=== PATIENT | female | born 1990 | race Caucasian/White ===

== ENCOUNTER → 2017-07-16 | Outpatient (REF) ==
[~2017-07-16] MED LIST: ACHYD1T PO; ACYC200C PO; CLOT15CR; DOCU100C37 PO; Docusate Sodium PO; FERR-57 PO; IBUP-1780 PO; Ibuprofen PO; ONDA4TAB11 PO; OXYC-465 PO; PREN1TAB25 PO
--- NOTE | 2017-07-16 12:58 | Diagnostic Imaging Report ---
INDICATION: Injury to the right fifth toe, complaining of pain and swelling to the fifth toe. TIME OF EXAMINATION: 12:59 p.m. FINDINGS: There is a longitudinally oriented lucency through the distal aspect of the proximal phalanx of the fifth toe, suspicious for a fracture line. No displacement is seen. The distal phalanx is intact. The fifth metatarsal is intact. No other abnormalities are seen. IMPRESSION: Findings suspicious for a nondisplaced fracture of the distal aspect proximal phalanx, fifth toe. Dictated by: Dictated on workstation # [id number]
== END | disposition home or self-care (01) ==
LOC: RAD 12:32
PROVIDERS: ATTEND Nurse Practitioner Family
CPT/HCPCS: 73630

== ENCOUNTER 2017-08-18 02:42 | Emergency (ER) | payer OTHER ==
[~2017-08-18] VITALS: Ht 177.8 cm; Wt 95.3 kg
[2017-08-18] MEDS ORDERED: ONDANSETRON 4 MG (ZOFRAN) ORAL DISSOLVE TAB SL STA (03:05)
[2017-08-18] MEDS ORDERED: LIDOCAINE 2% VISCOUS 15 ML UDC PO ONE (03:15)
[2017-08-18] MEDS ORDERED: ANTACID SUSP 30 ML UDC (MYLANTA) PO ONE (03:15)
[2017-08-18 03:48] LABS: BILIRUBIN,URINE NEGATIVE (NEGATIVE); CLARITY,URINE CLEAR; COLOR,URINE YELLOW; GLUCOSE, URINE (UA) NEGATIVE (NEGATIVE); KETONES,URINE NEGATIVE (NEGATIVE); LEUKOCYTE ESTERASE ,URINE NEGATIVE (NEGATIVE); NITRITE,URINE NEGATIVE (NEGATIVE); PH,URINE 7 (5-9); PROTEIN,URINE NEGATIVE (NEGATIVE); UROBILINOGEN,URINE NORMAL (NORMAL)
[2017-08-18 04:02] LABS: BASOPHILS % (AUTO) 0 % (0-10); EOSINOPHILS # (AUTO) 0.2 10^3/uL (0.0-0.3); EOSINOPHILS % (AUTO) 2 % (0-10); HEMATOCRIT 41 % (35-52); HEMOGLOBIN 13.6 G/DL (11.5-16.0); LYMPHOCYTES # (AUTO) 1.9 X 10^3 (1.0-4.0); LYMPHOCYTES % (AUTO) 19 % (12-44); MEAN CORPUSCULAR HEMOGLOBIN 30 PG (25-34); MEAN CORPUSCULAR HGB CONC 33 G/DL (32-36); MEAN CORPUSCULAR VOLUME 92 FL (80-99); MEAN PLATELET VOLUME 9.4 FL (7.4-10.4); MONOCYTES # (AUTO) 0.6 X 10^3 (0.0-1.0); MONOCYTES % (AUTO) 6 % (0-12); NEUTROPHILS # (AUTO) 7.6 X 10^3 (1.8-7.8); NEUTROPHILS % (AUTO) 74 % (42-75); PLATELET COUNT 402 10^3/uL (130-400); RED BLOOD COUNT 4.48 10^6/uL (4.35-5.85); RED CELL DISTRIBUTION WIDTH 12.6 % (10.0-14.5); WHITE BLOOD COUNT 10.3 10^3/uL (4.3-11.0)
[2017-08-18 04:04] LABS: BACTERIA,URINE TRACE /HPF; SQUAMOUS EPITHELIAL CELL,UR 25-50 /HPF
[2017-08-18 04:21] LABS: ALANINE AMINOTRANSFERASE 11 U/L (0-55); ALBUMIN 3.8 GM/DL (3.2-4.5); ALKALINE PHOSPHATASE 72 U/L (40-136); BILIRUBIN,TOTAL 0.4 MG/DL (0.1-1.0); BUN/CREATININE RATIO 12; CALCIUM 9.2 MG/DL (8.5-10.1); CARBON DIOXIDE 22 MMOL/L (21-32); CHLORIDE 107 MMOL/L (98-107); CREATININE SERUM 0.97 MG/DL (0.60-1.30); GFR ESTIMATED > 60; GLUCOSE 127 MG/DL (70-105); LIPASE 42 U/L (8-78); POTASSIUM 4.3 MMOL/L (3.6-5.0); SODIUM 139 MMOL/L (135-145); TOTAL PROTEIN 7.2 GM/DL (6.4-8.2)
--- NOTE | 2017-08-18 04:34 | ED Abdominal Pain ---
General Chief Complaint: Abdominal/GI Problems Stated Complaint: AB PAIN Nursing Triage Note: PT REPORTS EPIGASTRIC ABD PAIN X 4 DAYS. SHE ALSO C/O NAUSEA WITHOUT VOMITING. PT IS AFEBRILE. Sepsis Screen: No Definite Risk Source of Information: Patient Exam Limitations: No Limitations History of Present Illness Date Seen by Provider: Aug 18, 2017 Time Seen by Provider: 02:40 Initial Comments This 26-year-old young lady presents to the emergency room with pain across the upper abdomen that is constant and crampy in nature. It started August 14 and has intensified some since then. She has associated nausea with some vomiting. Pain does not seem to be exacerbated with movement or eating. She also complained of some breast discomfort as well. Yhiw-xkd-hqnimgq pain medications and Zofran used at home have not been helpful. She denies fever. She denies constipation or diarrhea. Her last bowel movement was 08:00 yesterday. Her last solid food was a sandwich at 18:00. She last had water at 21:00. She is noted to have pain with laughing in the exam room. Allergies and Home Medications Allergies Coded Allergies: phenazopyridine (Verified Allergy, Intermediate, HIVES, 09/05/15) Home Medications Docusate Sodium 100 Mg Capsule, 100 MG PO BID Prescribed by: MERCEDES WILKINS on 09/16/15 0754 Ibuprofen 800 Mg Tablet, 800 MG PO Q6H Prescribed by: MERCEDES WILKINS on 09/16/15 0754 Oxycodone HCl/Acetaminophen 1 Each Tablet, 1-2 TAB PO Q4H PRN for PAIN Prescribed by: MERCEDES WILKINS on 09/16/15 0754 Vit#96/Ferrous Fum/Fa 1 Each Tablet, 1 EACH PO DAILY, (Reported) Review of Systems Constitutional: no symptoms reported EENTM: No Symptoms Reported Respiratory: No Symptoms Reported Cardiovascular: No Symptoms Reported Gastrointestinal: See HPI Genitourinary: No Symptoms Reported Musculoskeletal: no symptoms reported Skin: no symptoms reported Psychiatric/Neurological: No Symptoms Reported Endocrine: No Symptoms Reported Past Wtqshev-Nfhonh-Mwuhpi Hx Patient Social History Alcohol Use: Denies Use Recreational Drug Use: No Smoking Status: Never a Smoker 2nd Hand Smoke Exposure: No Recent Foreign Travel: No Contact w/Someone Who Travel: No Recent Infectious Disease Expo: No Recent Hopitalizations: No Immunizations Up To Date Tetanus Booster (TDap): More than 5yrs PED Vaccines UTD: Yes Date of Influenza Vaccine: Mar 07, 2015 Seasonal Allergies Seasonal Allergies: No Surgeries History of Surgeries: Yes Surgeries: Section Respiratory History of Respiratory Disorde: No Cardiovascular History of Cardiac Disorders: No (HYPERTENSION WITH LAST ) Neurological History of Neurological Disord: Yes Neurological Disorders: Headaches /Migraines Reproductive System : No Hx Reproductive Disorders: No Sexually Transmitted Disease: No HIV/AIDS: No Genitourinary History of Genitourinary Disor: No Gastrointestinal History of Gastrointestinal Di: No Musculoskeletal History of Musculoskeletal Dis: No Endocrine History of Endocrine Disorders: No HEENT History of HEENT Disorders: No Loss of Vision: Bilateral Hearing Impairment: Denies Cancer History of Cancer: No Psychosocial History of Psychiatric Problem: No Integumentary History of Skin or Integumenta: No Blood Transfusions History of Blood Disorders: No Adverse Reaction to a Blood Tr: No Family Medical History Significant Family History: Diabetes Family Medial History: Diabetes mellitus G8 SISTER Hypertension 19 FATHER Physical Exam Vital Signs VS - Last 72 Hours, by Label 08/18/17 08/18/17 02:50 05:50 Temp 97.1 97.1 Pulse 66 66 Resp 16 16 B/P (MAP) 133/96 (108) 133/96 (108) Pulse Ox 99 99 O2 Delivery Room Air Capillary Refill : Less Than 3 Seconds General Appearance: WD/WN, no apparent distress HEENT: PERRL/EOMI, normal ENT inspection Neck: normal inspection Respiratory: lungs clear, normal breath sounds, no respiratory distress, no accessory muscle use Cardiovascular: regular rate, rhythm, no edema, no murmur Gastrointestinal: normal bowel sounds, soft, tenderness (epigastric) Extremities: normal inspection, no pedal edema 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, no motor/sensory deficits, alert, normal mood/affect, oriented x 3 Skin: normal color, warm/dry Progress/Results/Core Measures Results/Orders Lab Results Laboratory Tests Test 08/18/17 02:55 08/18/17 03:49 Range/Units Urine Color YELLOW Urine Clarity CLEAR Urine pH 7 5-9 Urine Specific [place] 1.015 L 1.016-1.022 Urine Protein NEGATIVE NEGATIVE Urine Glucose (UA) NEGATIVE NEGATIVE Urine Ketones NEGATIVE NEGATIVE Urine Nitrite NEGATIVE NEGATIVE Urine Bilirubin NEGATIVE NEGATIVE Urine Urobilinogen NORMAL NORMAL MG/DL Urine Leukocyte Esterase NEGATIVE NEGATIVE Urine RBC (Auto) NEGATIVE NEGATIVE Urine RBC NONE /HPF Urine WBC NONE /HPF Urine Squamous Epithelial Cells 25-50 H /HPF Urine Crystals NONE /LPF Urine Bacteria TRACE /HPF Urine Casts NONE /LPF Urine Mucus NEGATIVE /LPF Urine Culture Indicated NO White Blood Count 10.3 4.3-11.0 10^3/uL Red Blood Count 4.48 4.35-5.85 10^6/uL Hemoglobin 13.6 11.5-16.0 G/DL Hematocrit 41 35-52 % Mean Corpuscular Volume 92 80-99 FL Mean Corpuscular Hemoglobin 30 25-34 PG Mean Corpuscular Hemoglobin Concent 33 32-36 G/DL Red Cell Distribution Width 12.6 10.0-14.5 % Platelet Count 402 H 130-400 10^3/uL Mean Platelet Volume 9.4 7.4-10.4 FL Neutrophils (%) (Auto) 74 42-75 % Lymphocytes (%) (Auto) 19 12-44 % Monocytes (%) (Auto) 6 0-12 % Eosinophils (%) (Auto) 2 0-10 % Basophils (%) (Auto) 0 0-10 % Neutrophils # (Auto) 7.6 1.8-7.8 X 10^3 Lymphocytes # (Auto) 1.9 1.0-4.0 X 10^3 Monocytes # (Auto) 0.6 0.0-1.0 X 10^3 Eosinophils # (Auto) 0.2 0.0-0.3 10^3/uL Basophils # (Auto) 0.0 0.0-0.1 10^3/uL Sodium Level 139 135-145 MMOL/L Potassium Level 4.3 3.6-5.0 MMOL/L Chloride Level 107 98-107 MMOL/L Carbon Dioxide Level 22 21-32 MMOL/L Anion Gap 10 5-14 MMOL/L Blood Urea Nitrogen 12 7-18 MG/DL Creatinine 0.97 0.60-1.30 MG/DL Estimat Glomerular Filtration Rate > 60 BUN/Creatinine Ratio 12 Glucose Level 127 H 70-105 MG/DL Calcium Level 9.2 8.5-10.1 MG/DL Total Bilirubin 0.4 0.1-1.0 MG/DL Aspartate Amino Transf (AST/SGOT) 14 5-34 U/L Alanine Aminotransferase (ALT/SGPT) 11 0-55 U/L Alkaline Phosphatase 72 40-136 U/L Total Protein 7.2 6.4-8.2 GM/DL Albumin 3.8 3.2-4.5 GM/DL Lipase 42 8-78 U/L Serum Test, Qualitative NEGATIVE NEGATIVE My Orders Orders - RAMAN STONE MD Ondansetron Oral Dissolve Tab (Zofran (08/18/17 03:05) Lidocaine 2% Viscous 15 Ml (Xylocaine Vi (08/18/17 03:15) Antacid Suspension (Mylanta Suspension (08/18/17 03:15) Cbc With Automated Diff (08/18/17 03:40) Comprehensive Metabolic Panel (08/18/17 03:40) Lipase (08/18/17 03:40) Ua Culture If Indicated (08/18/17 03:40) Saline Lock/Iv-Start (08/18/17 03:40) Hcg,Qualitative Serum (08/18/17 03:40) Abdomen/Kub 1view (08/18/17 04:23) Ondansetron Injection (Zofran Injectio (08/18/17 05:15) Ketorolac Injection (Toradol Injection) (08/18/17 05:30) Medications Given in ED Current Medications Medications Dose Ordered Sig/Nichelle Route Start Time Stop Time Status Last Admin Dose Admin Al Hydrox/Mg Hydrox/Simethicone 30 ml ONCE ONCE PO 08/18/17 03:15 08/18/17 03:16 DC 08/18/17 03:19 30 ML Ketorolac Tromethamine 15 mg ONCE ONCE IVP 08/18/17 05:30 08/18/17 05:31 DC 08/18/17 05:38 15 MG Lidocaine HCl 15 ml ONCE ONCE PO 08/18/17 03:15 08/18/17 03:16 DC 08/18/17 03:19 15 ML Ondansetron HCl 4 mg ONCE ONCE IVP 08/18/17 05:15 08/18/17 05:16 DC 08/18/17 05:13 4 MG Vital Signs/I&O Vital Sign - Last 12Hours 08/18/17 08/18/17 02:50 05:50 Temp 97.1 97.1 Pulse 66 66 Resp 16 16 B/P (MAP) 133/96 (108) 133/96 (108) Pulse Ox 99 99 O2 Delivery Room Air Blood Pressure Mean: 108 Progress Note : Progress Note GI cocktail and Zofran gave no relief. Labs were pursued. No acute abnormalities were found in the lab work. KUB demonstrated a significant amount of stool in the proximal transverse colon. Constipation was suspected as a potential cause of her pain. Imaging options were discussed with patient. A gallbladder ultrasound was ordered as an outpatient study. Diagnostic Imaging Diagonstic Imaging: Xray Plain Films/CT/US/NM/MRI: abdomen, pelvis Comments KUB viewed by me. Report not yet available. There is a significant amount of the proximal transverse colon. Departure Impression Impression: Primary Impression: Epigastric pain Additional Impression: Nausea & vomiting Qualified Codes: R11.2 - Nausea with vomiting, unspecified Disposition: HOME, SELF-CARE Condition: Improved Departure-Patient Inst. Decision time for Depature: 05:15 Referrals: CHRISTIAN LIM MD (PCP/Family) Primary Care Physician Patient Instructions: Acute Abdomen (Belly Pain), Adult (DC) Add. Discharge Instructions: Consume a clear liquid diet for the next 24 hours until you produce a good bowel movement. Your symptoms may be related to constipation. Try MiraLAX (or generic polyethylene glycol) 2 or 3 doses over the next 24 hours or until a good bowel movement is produced. You may take ibuprofen up to 600 mg every 6 hours as needed for pain. Add Tylenol (acetaminophen) up to 1000 mg every 6 hours as needed for additional pain relief. Also take an antacid such as Pepcid (famotidine) or omeprazole. Return to care if symptoms worsen or if you develop new symptoms such as fever over 100. Follow-up with your primary care provider later this week. You may continue using Zofran as previously prescribed. All discharge instructions reviewed with patient and/or family. Voiced understanding. Copy Copies To 1: CHRISTIAN LIM MD, JOSHUA T MD Aug 18, 2017 04:34
[2017-08-18] MEDS ORDERED: ONDANSETRON 4 MG/2 ML (SDV) Z0FRAN IVP ONE (05:15)
[2017-08-18] MEDS ORDERED: KETOROLAC 30 MG/ML VIAL IVP ONE (05:30)
[2017-08-18 05:50] VITALS: BP 133/96
--- NOTE | 2017-08-18 06:06 | Diagnostic Imaging Report ---
INDICATION: Epigastric pain. COMPARISON: CT abdomen and pelvis of 11/30/2008. FINDINGS: No free intraperitoneal air. Nonobstructive bowel gas pattern. There is a small to moderate amount of colonic stool present. Normal regional skeleton. No abnormal soft tissue mineralizations overlying the renal fossae. IMPRESSION: 1. Nonobstructive bowel gas pattern. 2. Small to moderate volume of colonic stool. Dictated by: Dictated on workstation # [id number]
== END 2017-08-18 05:50 | disposition home or self-care (01) ==
LOC: EDUNIT# 02:42 → ER 02:44
DX: R10.13 Epigastric pain (principal); R11.2 Nausea with vomiting, unspecified; G43.909 Migraine, unspecified, not intractable, without status migrainosus; I10 Essential (primary) hypertension; Z32.02 Encounter for pregnancy test, result negative; Z87.59 Personal history of other complications of pregnancy, childbirth and the puerperium; Z88.2 Allergy status to sulfonamides
CPT/HCPCS: 36415; 74018; 80053; 81000; 83690; 84703; 85025; 96374; 96375

== ENCOUNTER → 2017-08-22 | Outpatient (CLI) | payer OTHER ==
--- NOTE | 2017-08-22 08:18 | Diagnostic Imaging Report ---
PROCEDURE: US Gallbladder. TECHNIQUE: Multiple real-time grayscale images were obtained over the right upper quadrant in various projections. INDICATION: Epigastric pain. The liver is normal in size at 14 cm. No discrete liver mass is identified. The gallbladder is normal in appearance. There are no stones or sludge identified. No gallbladder wall thickening or pericholecystic fluid is detected. There is no biliary duct dilatation. The visualized pancreas is unremarkable. The right kidney is unremarkable. No stones or hydronephrosis is detected. There is no ascites. IMPRESSION: Essentially unremarkable gallbladder ultrasound. There is no evidence of cholelithiasis or acute cholecystitis. Dictated by: Dictated on workstation # [id number]
== END ==
LOC: RAD 06:41
PROVIDERS: ATTEND Family Medicine
DX: R10.13 Epigastric pain (principal); R11.2 Nausea with vomiting, unspecified
CPT/HCPCS: 76705

== ENCOUNTER 2019-04-05 20:02 | Emergency (ER) | payer OTHER ==
[~2019-04-05] VITALS: Ht 175 cm; Wt 107.0 kg
[2019-04-05 20:43] LABS: BILIRUBIN,URINE NEGATIVE (NEGATIVE); CLARITY,URINE CLEAR; COLOR,URINE YELLOW; GLUCOSE, URINE (UA) NEGATIVE (NEGATIVE); KETONES,URINE 3+ (NEGATIVE); LEUKOCYTE ESTERASE ,URINE 2+ (NEGATIVE); NITRITE,URINE NEGATIVE (NEGATIVE); PH,URINE 6.5 (5-9); PROTEIN,URINE 2+ (NEGATIVE); UROBILINOGEN,URINE NORMAL (NORMAL)
[2019-04-05] MEDS ORDERED: NS IV ONE (20:45)
[2019-04-05 20:51] LABS: BACTERIA,URINE MODERATE /HPF; SQUAMOUS EPITHELIAL CELL,UR 25-50 /HPF
[2019-04-05 21:01] LABS: BASOPHILS % (AUTO) 0 % (0-10); EOSINOPHILS # (AUTO) 0.1 10^3/uL (0.0-0.3); EOSINOPHILS % (AUTO) 1 % (0-10); HEMATOCRIT 36 % (35-52); LYMPHOCYTES # (AUTO) 1.3 X 10^3 (1.0-4.0); LYMPHOCYTES % (AUTO) 13 % (12-44); MEAN CORPUSCULAR HEMOGLOBIN 29 PG (25-34); MEAN CORPUSCULAR HGB CONC 33 G/DL (32-36); MEAN CORPUSCULAR VOLUME 88 FL (80-99); MEAN PLATELET VOLUME 9.3 FL (7.4-10.4); MONOCYTES # (AUTO) 1.2 X 10^3 (0.0-1.0); MONOCYTES % (AUTO) 11 % (0-12); NEUTROPHILS # (AUTO) 8.1 X 10^3 (1.8-7.8); NEUTROPHILS % (AUTO) 75 % (42-75); PLATELET COUNT 304 10^3/uL (130-400); RED CELL DISTRIBUTION WIDTH 13.5 % (10.0-14.5); WHITE BLOOD COUNT 10.7 10^3/uL (4.3-11.0)
[2019-04-05 21:18] LABS: ALANINE AMINOTRANSFERASE 25 U/L (0-55); ALBUMIN 3.6 GM/DL (3.2-4.5); ALKALINE PHOSPHATASE 67 U/L (40-136); BILIRUBIN,TOTAL 0.5 MG/DL (0.1-1.0); BUN/CREATININE RATIO 10; CALCIUM 8.8 MG/DL (8.5-10.1); CARBON DIOXIDE 18 MMOL/L (21-32); CHLORIDE 103 MMOL/L (98-107); CREATININE SERUM 0.73 MG/DL (0.60-1.30); GFR ESTIMATED > 60; GLUCOSE 105 MG/DL (70-105); POTASSIUM 3.4 MMOL/L (3.6-5.0); SODIUM 134 MMOL/L (135-145); TOTAL PROTEIN 7.5 GM/DL (6.4-8.2)
[2019-04-05] MEDS ORDERED: LACTATED RINGERS 1,000 ML IV ONE (22:11)
[2019-04-05] MEDS ORDERED: AZITHROMYCIN 250 MG TAB (ZITHROMAX) PO ONE (22:15)
[2019-04-05] MEDS ORDERED: cefTRIAXone FOR IV USE 1,000 MG in WATER (STERILE) FOR INJECTION 10 ML IV ONE (22:15)
[2019-04-05] MEDS ORDERED: ONDANSETRON 4 MG/2 ML (SDV) Z0FRAN ONE (22:58)
[2019-04-05] MEDS ORDERED: ACETAMINOPHEN 500 MG TAB (TYLENOL) PO ONE (23:00)
--- NOTE | 2019-04-05 23:07 | ED Cough/URI ---
General Chief Complaint: Fever-Adult/Adol Stated Complaint: 16 WEEKS PREG, FEVER 4 DAYS Nursing Triage Note: Pt ambulates to Rm 9 with c/o fever/body aches/chills x 4 days. Pt is 16 wks . Reports taking tylenol q 4 hrs for fever, last taken at 1800 this evening. Pt reports nausea as well, has vomited once. Sepsis Screen: Possible Severe Sepsis Risk Allergies and Home Medications Allergies Coded Allergies: phenazopyridine (Verified Allergy, Intermediate, HIVES, 09/05/15) Home Medications Docusate Sodium 100 Mg Capsule, 100 MG PO BID Prescribed by: MERCEDES WILKINS on 09/16/15 075 Ibuprofen 800 Mg Tablet, 800 MG PO Q6H Prescribed by: MERCEDES WILKINS on 09/16/15 075 Oxycodone HCl/Acetaminophen 1 Each Tablet, 1-2 TAB PO Q4H PRN for PAIN Prescribed by: MERCEDES WILKINS on 09/16/15 075 Vit#96/Ferrous Fum/Fa 1 Each Tablet, 1 EACH PO DAILY, (Reported) Past Rntufwn-Rspydu-Xehvix Hx Patient Social History Alcohol Use: Denies Use Recreational Drug Use: No Smoking Status: Never a Smoker 2nd Hand Smoke Exposure: No Recent Foreign Travel: No Contact w/Someone Who Travel: No Recent Infectious Disease Expo: No Recent Hopitalizations: No Physical Abuse: No Sexual Abuse: No Mistreated: No Fear: No Immunizations Up To Date Tetanus Booster (TDap): More than 5yrs PED Vaccines UTD: Yes Date of Influenza Vaccine: Mar 18, 2019 Seasonal Allergies Seasonal Allergies: No Past Medical History Surgeries: Yes Section Respiratory: No Cardiac: No (gestational hypertension ) Hypertension Neurological: Yes Headaches /Migraines Reproductive Disorders: No Sexually Transmitted Disease: No HIV/AIDS: No Genitourinary: No Gastrointestinal: No Musculoskeletal: No Endocrine: No HEENT: No Loss of Vision: Bilateral Hearing Impairment: Denies Cancer: No Psychosocial: No Integumentary: No Blood Disorders: No Adverse Reaction/Blood Tranf: No Family Medical History Diabetes mellitus G8 SISTER Hypertension 19 FATHER Diabetes Physical Exam Vital Signs - First Documented 04/05/19 20:26 Temp 36.9 Pulse 140 Resp 19 B/P (MAP) 141/81 (101) Pulse Ox 99 O2 Delivery Room Air Capillary Refill : Less Than 3 Seconds Height: 5'10.00" Weight: 210lbs. 0oz. 95.853612kv; 34.00 BMI Method:Stated Focused Exam Lactate Level 04/05/19 20:55: Lactic Acid Level 0.85 Lactic Acid Level Laboratory Tests Test 04/05/19 20:55 Lactic Acid Level 0.85 MMOL/L (0.50-2.00) Progress/Results/Core Measures Suspected Sepsis Recent Fever Within 48 Hours: Yes Infection Criteria Present: Suspected New Infection New/Unexplained Altered Menta: No Sepsis Screen: Possible Severe Sepsis Risk SIRS Temperature: Pulse: 140 Respiratory Rate: 19 Laboratory Tests 04/05/19 20:55: White Blood Count 10.7 Blood Pressure 141 /81 Mean: 101 04/05/19 20:55: Lactic Acid Level 0.85 Laboratory Tests 04/05/19 20:55: Creatinine 0.73, INR Comment 1.0, Platelet Count 304, Total Bilirubin 0.5 Results/Orders Lab Results Laboratory Tests Test 04/05/19 20:30 04/05/19 20:55 Range/Units Urine Color YELLOW Urine Clarity CLEAR Urine pH 6.5 5-9 Urine Specific [place] 1.015 L 1.016-1.022 Urine Protein 2+ H NEGATIVE Urine Glucose (UA) NEGATIVE NEGATIVE Urine Ketones 3+ H NEGATIVE Urine Nitrite NEGATIVE NEGATIVE Urine Bilirubin NEGATIVE NEGATIVE Urine Urobilinogen NORMAL NORMAL MG/DL Urine Leukocyte Esterase 2+ H NEGATIVE Urine RBC (Auto) 3+ H NEGATIVE Urine RBC 5-10 H /HPF Urine WBC 10-25 H /HPF Urine Squamous Epithelial Cells 25-50 H /HPF Urine Crystals NONE /LPF Urine Bacteria MODERATE H /HPF Urine Casts NONE /LPF Urine Mucus MODERATE H /LPF Urine Culture Indicated CULTURE PENDING White Blood Count 10.7 4.3-11.0 10^3/uL Red Blood Count 4.13 L 4.35-5.85 10^6/uL Hemoglobin 12.0 11.5-16.0 G/DL Hematocrit 36 35-52 % Mean Corpuscular Volume 88 80-99 FL Mean Corpuscular Hemoglobin 29 25-34 PG Mean Corpuscular Hemoglobin Concent 33 32-36 G/DL Red Cell Distribution Width 13.5 10.0-14.5 % Platelet Count 304 130-400 10^3/uL Mean Platelet Volume 9.3 7.4-10.4 FL Neutrophils (%) (Auto) 75 42-75 % Lymphocytes (%) (Auto) 13 12-44 % Monocytes (%) (Auto) 11 0-12 % Eosinophils (%) (Auto) 1 0-10 % Basophils (%) (Auto) 0 0-10 % Neutrophils # (Auto) 8.1 H 1.8-7.8 X 10^3 Lymphocytes # (Auto) 1.3 1.0-4.0 X 10^3 Monocytes # (Auto) 1.2 H 0.0-1.0 X 10^3 Eosinophils # (Auto) 0.1 0.0-0.3 10^3/uL Basophils # (Auto) 0.0 0.0-0.1 10^3/uL Prothrombin Time 14.0 12.2-14.7 SEC INR Comment 1.0 0.8-1.4 Activated Partial Thromboplast Time 29 24-35 SEC Sodium Level 134 L 135-145 MMOL/L Potassium Level 3.4 L 3.6-5.0 MMOL/L Chloride Level 103 98-107 MMOL/L Carbon Dioxide Level 18 L 21-32 MMOL/L Anion Gap 13 5-14 MMOL/L Blood Urea Nitrogen 7 7-18 MG/DL Creatinine 0.73 0.60-1.30 MG/DL Estimat Glomerular Filtration Rate > 60 BUN/Creatinine Ratio 10 Glucose Level 105 70-105 MG/DL Lactic Acid Level 0.85 0.50-2.00 MMOL/L Calcium Level 8.8 8.5-10.1 MG/DL Corrected Calcium 9.1 8.5-10.1 MG/DL Total Bilirubin 0.5 0.1-1.0 MG/DL Aspartate Amino Transf (AST/SGOT) 23 5-34 U/L Alanine Aminotransferase (ALT/SGPT) 25 0-55 U/L Alkaline Phosphatase 67 40-136 U/L Total Protein 7.5 6.4-8.2 GM/DL Albumin 3.6 3.2-4.5 GM/DL Micro Results Microbiology 04/05/19 Influenza Types A,B Antigen (HOANG) - Final, Complete My Orders Orders - JUAN CARLOS MARC DO Cbc With Automated Diff (04/05/19 20:36) Comprehensive Metabolic Panel (04/05/19 20:36) Blood Culture (04/05/19 20:36) Ns Iv 1000 Ml (Sodium Chloride 0.9%) (04/05/19 20:45) Lactic Acid Analyzer (04/05/19 20:36) Heart Tones (04/05/19 20:36) Sputum Culture (04/05/19 20:36) Urinalysis (04/05/19 20:36) Urine Culture (04/05/19 20:36) Protime With Inr (04/05/19 20:36) Partial Thromboplastin Time (04/05/19 20:36) Chest 1 View, Ap/Pa Only (04/05/19 20:36) Ed Iv/Invasive Line Start (04/05/19 20:36) Ed Iv/Invasive Line Start (04/05/19 20:36) Vital Signs Adult Sepsis Patie Q15M (04/05/19 20:36) O2 (04/05/19 20:36) Remove Rings In Anticipation O (04/05/19 20:36) Influenza A And B Antigens (04/05/19 20:36) Ceftriaxone For Iv Use (Rocephin For I (04/05/19 22:15) Azithromycin Tablet (Zithromax Tablet) (04/05/19 22:15) Ed Iv/Invasive Line Start (04/05/19 22:11) Lactated Ringers (Lr 1000 Ml Iv Solution (04/05/19 22:11) Acetaminophen Tablet (Tylenol Tablet) (04/05/19 23:00) Ondansetron Injection (Zofran Injectio (04/05/19 22:58) Medications Given in ED Current Medications Medications Dose Ordered Sig/Nichelle Route Start Time Stop Time Status Last Admin Dose Admin Acetaminophen 1,000 mg ONCE ONCE PO 04/05/19 23:00 04/05/19 23:01 DC 04/05/19 23:01 1,000 MG Azithromycin 500 mg ONCE ONCE PO 04/05/19 22:15 04/05/19 22:16 DC 04/05/19 22:33 500 MG Ceftriaxone Sodium 1000 mg/ Sterile Water 10 ml @ 200 mls/hr ONCE ONCE IV 04/05/19 22:15 04/05/19 22:17 DC 04/05/19 22:33 200 MLS/HR Lactated Ringer's 1,000 ml @ 0 mls/hr Q0M ONCE IV 04/05/19 22:11 04/05/19 22:24 DC 04/05/19 22:32 0 MLS/HR Sodium Chloride 2,857.62 ml @ 2,857.62 mls/hr ONCE ONCE IV 04/05/19 20:45 04/05/19 21:44 DC 04/05/19 21:03 2,857.62 MLS/HR Vital Signs/I&O 04/05/19 04/05/19 20:26 23:01 Temp 36.9 38.9 Pulse 140 Resp 19 B/P (MAP) 141/81 (101) Pulse Ox 99 O2 Delivery Room Air Capillary Refill : Less Than 3 Seconds Blood Pressure Mean: 101 Departure Impression Primary Impression: RUL PNEUMONIA Additional Impressions: 16 weeks gestation of UTI (urinary tract infection) Mild dehydration Disposition: 01 HOME, SELF-CARE Condition: Improved Departure-Patient Inst. Referrals: SELF,PATIENT REFERRAL (PCP) Primary Care Physician Patient Instructions: Avoiding Infections in , Community-Acquired Pneumonia, Adult (DC), Dehydration, Adult (DC), Urinary Tract Infection, Adult (DC) Add. Discharge Instructions: LOTS OF CLEAR LIQUIDS--WATER, BROTH, JELLO, GATORADE TYLENOL NEEDED FOR PAIN OR FEVER FOLLOW UP WITH DR. HITCHCOCK IN 1-2 DAYS FOR FURTHER CARE All discharge instructions reviewed with patient and/or family. Voiced understanding. Scripts Cefdinir (Cefdinir) 300 Mg Capsule 300 MG PO BID for FOR INFECTION, #20 CAP Prov: JUAN CARLOS MARC DO 04/05/19 Azithromycin (Zithromax) 500 Mg Tablet 500 MG PO DAILY, #5 TAB FOR INFECTION Prov: JUAN CARLOS MARC DO 04/05/19 JUAN CARLOS MARC DO Apr 05, 2019 23:07
[2019-04-05] MEDS ORDERED: AZIT500T PO (23:27)
[2019-04-05] MEDS ORDERED: CEFD300C3 PO (23:27)
[2019-04-06 00:04] VITALS: BP 111/79
[2019-04-06] MEDS ORDERED: ONDANSETRON 4 MG/2 ML (SDV) Z0FRAN IVP ONE (00:15)
--- NOTE | 2019-04-06 06:56 | Diagnostic Imaging Report ---
INDICATION: Pneumonia COMPARISON: None. FINDINGS: Single view of the chest demonstrates right upper lobe infiltrate. Left lung is clear. The heart is normal. There is no pneumothorax but osseous structures are normal. IMPRESSION: Likely right upper lobe pneumonia. Follow-up recommended. Dictated by: Dictated on workstation # [id number]
== END 2019-04-06 00:04 | disposition home or self-care (01) ==
LOC: EDUNIT# 20:02 → ER 20:03
DX: O99.512 Diseases of the respiratory system complicating pregnancy, second trimester (principal); J18.1 Lobar pneumonia, unspecified organism; O23.42 Unspecified infection of urinary tract in pregnancy, second trimester; O99.282 Endocrine, nutritional and metabolic diseases complicating pregnancy, second trimester; E86.0 Dehydration; O16.2 Unspecified maternal hypertension, second trimester; O99.352 Diseases of the nervous system complicating pregnancy, second trimester; G43.909 Migraine, unspecified, not intractable, without status migrainosus; Z3A.16 16 weeks gestation of pregnancy; Z88.8 Allergy status to other drugs, medicaments and biological substances; Z82.49 Family history of ischemic heart disease and other diseases of the circulatory system
CPT/HCPCS: 36415; 71045; 80053; 81000; 83605; 85025; 85610; 85730; 87040; 87088; 87804

== ENCOUNTER 2019-07-14 13:25 | Outpatient (RCR) | payer OTHER ==
[~2019-07-14 13:25] MED LIST changes: +AZIT500T PO; +CEFD300C3 PO
== END 2019-08-27 09:58 | disposition home or self-care (01) ==
PROVIDERS: ATTEND Physical Therapist
DX: O26.893 Other specified pregnancy related conditions, third trimester (principal); M54.31 Sciatica, right side; Z3A.29 29 weeks gestation of pregnancy

== ENCOUNTER → 2019-08-25 | Outpatient (CLI) | payer OTHER | LOC: LABNPT 15:09 | PROVIDERS: ATTEND Obstetrics & Gynecology | DX: O14.03 Mild to moderate pre-eclampsia, third trimester (principal); Z3A.00 Weeks of gestation of pregnancy not specified | CPT/HCPCS: 82570; 84156 ==

== ENCOUNTER 2019-08-31 14:19 | Inpatient (IN) | payer OTHER ==
[~2019-08-31] VITALS: Ht 175.3 cm; Wt 117.0 kg
[2019-08-31] VITALS (10 sets, daily range): BP systolic 113–142; BP diastolic 71–97
--- NOTE | 2019-08-31 14:15 | NUR ---
HECTOR ADHIKARI presented to unit via ambulation from for direct for repeat c/s. Pt. weighed, gowned, voided, and to bed. EFHM and TOCO applied, VS taken. Pt. oriented to bed controls, call light, TV, heat, and A/C controls.
[~2019-08-31 14:19] MED LIST changes: +ceFAZolin 2 GM IV Premixed 50 ML IV NR
[2019-08-31] MEDS: LACTATED RINGERS 1,000 ML IV PRN ×3 (14:35→18:57)
--- NOTE | 2019-08-31 14:50 | NUR ---
c/s consent singed and placed on chart.
[2019-08-31] MEDS ORDERED: OXYTOCIN PRE-MIX DRIP 1,000 ML IV ONE (14:57)
[2019-08-31] MEDS ORDERED: ONDANSETRON 4 MG/2 ML (SDV) Z0FRAN ONE (14:57)
[2019-08-31] MEDS ORDERED: fentaNYL INJECTION 100 MCG/2 ML AMP ONE (14:58)
[2019-08-31] MEDS ORDERED: CITRIC ACID/SOB CIT (BICITRA) 30 ML UDC PO ONE (15:00)
[2019-08-31] MEDS ORDERED: FAMOTIDINE 20MG/2ML IV (PEPCID) IV ONE (15:00)
[2019-08-31] MEDS ORDERED: METOCLOPRAMIDE INJ 10 MG/2 ML (REGLAN) IV ONE (15:00)
--- NOTE | 2019-08-31 15:06 | NUR ---
was notified of pt's NPO status @ [id number]. c/s @ [id number]
[2019-08-31 15:28] LABS: BASOPHILS % (AUTO) 0 % (0-10); EOSINOPHILS # (AUTO) 0.1 10^3/uL (0.0-0.3); EOSINOPHILS % (AUTO) 1 % (0-10); HEMATOCRIT 34 % (35-52); HEMOGLOBIN 10.8 G/DL (11.5-16.0); LYMPHOCYTES # (AUTO) 1.9 X 10^3 (1.0-4.0); LYMPHOCYTES % (AUTO) 20 % (12-44); MEAN CORPUSCULAR HEMOGLOBIN 27 PG (25-34); MEAN CORPUSCULAR HGB CONC 32 G/DL (32-36); MEAN CORPUSCULAR VOLUME 86 FL (80-99); MEAN PLATELET VOLUME 10.8 FL (7.4-10.4); MONOCYTES # (AUTO) 0.9 X 10^3 (0.0-1.0); MONOCYTES % (AUTO) 9 % (0-12); NEUTROPHILS # (AUTO) 6.6 X 10^3 (1.8-7.8); NEUTROPHILS % (AUTO) 70 % (42-75); PLATELET COUNT 335 10^3/uL (130-400); WHITE BLOOD COUNT 9.4 10^3/uL (4.3-11.0)
[2019-08-31] MEDS ORDERED: ceFAZolin 2 GM IV Premixed 50 ML IV NR (15:30)
[2019-08-31] MEDS ORDERED: D5 LR IV SOLUTION 1,000 ML IV SCH ×2 (15:30→20:25)
[2019-08-31] MEDS ORDERED: ceFAZolin INJECTION 2,000 MG in WATER (STERILE) FOR INJECTION 10 ML IV ONE (15:30)
[2019-08-31] MEDS ORDERED: metroNIDAZOLE 500MG/100ML IVPB 100 ML IV ONE (15:30)
[2019-08-31] MEDS ORDERED: ceFAZolin 2 GM/50 ML NS 50 ML IV NR (15:30)
[2019-08-31] MEDS ORDERED: OXYC-465 PO (15:36)
[2019-08-31] MEDS ORDERED: IBUP-1780 PO (15:36)
[2019-08-31] MEDS ORDERED: DOCU100C37 PO (15:36)
--- NOTE | 2019-08-31 15:37 | Discharge Inst-Surgical ---
Discharge Inst-Surgical Depart Medication/Instructions New, Converted or Re-Newed RX: RX on Chart Consults/Follow Up Patient Instructions: as directed Orders & Referrals Follow Up Appt: RTC 1 week for incision check. Call to make follow up appt. for patient in 4 weeks. Wound Care: Remove betzaida, apply benzoin and steri strips. Activity Per routine post instructions. Please call in RX to patient pharmacy. Diet as tolerated Patient may shower or tub bathe as desired. Continue home meds Activity Activity as Tolerated: No Diet Discharge Diet: No Restrictions MERCEDES HITCHCOCK MD Aug 31, 2019 15:37
[2019-08-31 16:13] LABS: ALANINE AMINOTRANSFERASE 7 U/L (0-55); ALBUMIN 3.1 GM/DL (3.2-4.5); ALKALINE PHOSPHATASE 172 U/L (40-136); BILIRUBIN,TOTAL 0.7 MG/DL (0.1-1.0); BUN/CREATININE RATIO 12; CALCIUM 8.3 MG/DL (8.5-10.1); CARBON DIOXIDE 18 MMOL/L (21-32); CHLORIDE 107 MMOL/L (98-107); CREATININE SERUM 0.66 MG/DL (0.60-1.30); GFR ESTIMATED > 60; GLUCOSE 112 MG/DL (70-105); SODIUM 134 MMOL/L (135-145); TOTAL PROTEIN 6.4 GM/DL (6.4-8.2); URIC ACID 3.4 MG/DL (2.6-7.2)
[2019-08-31] MEDS ORDERED: METOCLOPRAMIDE INJ 10 MG/2 ML (REGLAN) ONE (17:28)
[2019-08-31] MEDS ORDERED: CITRIC ACID/SOB CIT (BICITRA) 30 ML UDC ONE (17:29)
[2019-08-31] MEDS ORDERED: FAMOTIDINE 20MG/2ML IV (PEPCID) ONE (17:29)
--- NOTE | 2019-08-31 18:05 | History & Physical ---
History and Physical Date Seen by Provider: Aug 31, 2019 Time Seen by Provider: 18:02 This patient is a 28-year-old G4 to 1 white female with an EDC of 3 2720 putting her early 737 weeks' gestation. He was admitted from my clinic with elevated blood pressures in the 150s over 100 100s. Her previous was complicated by severe preeclampsia. She is beginning to spill protein in her urine and weight had gone up 3 pounds in the past 3 days. Her GBS culture was negative after 30 weeks gestation. She has had 2 previous deliveries. Allergies are to Pyridium Medications are vitamins Medical social and surgical histories are per the antepartum record HEENT exam is normal Neck is supple no lymphadenopathy no thyromegaly Abdomen is gravid soft nontender nondistended Extremities show no clubbing cyanosis. There is no Homans sign. Pelvic exam is deferred Lab work is as follows Laboratory Tests Test 08/31/19 14:40 Range/Units White Blood Count 9.4 4.3-11.0 10^3/uL Red Blood Count 3.98 L 4.35-5.85 10^6/uL Hemoglobin 10.8 L 11.5-16.0 G/DL Hematocrit 34 L 35-52 % Mean Corpuscular Volume 86 80-99 FL Mean Corpuscular Hemoglobin 27 25-34 PG Mean Corpuscular Hemoglobin Concent 32 32-36 G/DL Red Cell Distribution Width 16.0 H 10.0-14.5 % Platelet Count 335 130-400 10^3/uL Mean Platelet Volume 10.8 H 7.4-10.4 FL Neutrophils (%) (Auto) 70 42-75 % Lymphocytes (%) (Auto) 20 12-44 % Monocytes (%) (Auto) 9 0-12 % Eosinophils (%) (Auto) 1 0-10 % Basophils (%) (Auto) 0 0-10 % Neutrophils # (Auto) 6.6 1.8-7.8 X 10^3 Lymphocytes # (Auto) 1.9 1.0-4.0 X 10^3 Monocytes # (Auto) 0.9 0.0-1.0 X 10^3 Eosinophils # (Auto) 0.1 0.0-0.3 10^3/uL Basophils # (Auto) 0.0 0.0-0.1 10^3/uL Sodium Level 134 L 135-145 MMOL/L Potassium Level 4.0 3.6-5.0 MMOL/L Chloride Level 107 98-107 MMOL/L Carbon Dioxide Level 18 L 21-32 MMOL/L Anion Gap 9 5-14 MMOL/L Blood Urea Nitrogen 8 7-18 MG/DL Creatinine 0.66 0.60-1.30 MG/DL Estimat Glomerular Filtration Rate > 60 BUN/Creatinine Ratio 12 Glucose Level 112 H 70-105 MG/DL Uric Acid 3.4 2.6-7.2 MG/DL Calcium Level 8.3 L 8.5-10.1 MG/DL Corrected Calcium 9.0 8.5-10.1 MG/DL Total Bilirubin 0.7 0.1-1.0 MG/DL Aspartate Amino Transf (AST/SGOT) 14 5-34 U/L Alanine Aminotransferase (ALT/SGPT) 7 0-55 U/L Alkaline Phosphatase 172 H 40-136 U/L Lactate Dehydrogenase 231 H 125-220 U/L Total Protein 6.4 6.4-8.2 GM/DL Albumin 3.1 L 3.2-4.5 GM/DL It is of note that the LDH is elevated. A urine protein creatinine ratio is pending. monitor shows somewhat irregular contractions every 3-7 minutes. The heart rate pattern is normal and reassuring. Assessment and plan 37+ week with preeclampsia/severe preeclampsia. Plan is to proceed with delivery. Severe preeclampsia at 37-3/7 weeks gestation Allergies and Home Medications Allergies Coded Allergies: phenazopyridine (Verified Allergy, Intermediate, HIVES, 09/05/15) Home Medications Azithromycin 500 Mg Tablet, 500 MG PO DAILY FOR INFECTION Prescribed by: JUAN CARLOS MARC on 04/05/192326 Cefdinir 300 Mg Capsule, 300 MG PO BID Prescribed by: JUAN CARLOS MARC on 04/05/192326 Docusate Sodium 100 Mg Capsule, 100 MG PO BID Prescribed by: MERCEDES WILKINS on 08/31/191535 Ibuprofen 800 Mg Tablet, 800 MG PO Q6H Prescribed by: MERCEDES WILKINS on 08/31/191535 Oxycodone HCl/Acetaminophen 1 Each Tablet, 1 TAB PO Q4H PRN for PAIN Prescribed by: MERCEDES WILKINS on 08/31/19 153 Vit#96/Ferrous Fum/Fa 1 Each Tablet, 1 EACH PO DAILY, (Reported) Patient Home Medication List Home Medication List Reviewed: Yes MERCEDES HITCHCOCK MD Aug 31, 2019 18:05
[2019-08-31] MEDS ORDERED: BUPIVACAINE 0.25% 30 ML (SENSORCAINE) VIAL ONE (18:25)
[2019-08-31] MEDS ORDERED: KETOROLAC 30 MG/ML VIAL ONE (18:49)
[2019-08-31] MEDS: KETOROLAC 30 MG/ML VIAL IVP SCH (19:30)
[2019-08-31] MEDS ORDERED: METOCLOPRAMIDE INJ 10 MG/2 ML (REGLAN) IV PRN (19:45)
[2019-08-31] MEDS ORDERED: ONDANSETRON 4 MG/2 ML (SDV) Z0FRAN IV PRN (19:45)
[2019-08-31] MEDS ORDERED: diphenhydrAMINE 50 MG/ML INJ (BENADRYL) IV PRN (19:45)
[2019-08-31] MEDS ORDERED: NALOXONE 0.4 MG/ML 1 ML (NARCAN) VIAL IV PRN ×2 (19:45)
[2019-08-31] MEDS ORDERED: TETANUS,DIPTH,PERTUSS P/F (BOOSTRIX) 0.5 ML VIAL IM ONE (20:30)
[2019-08-31] MEDS ORDERED: ONDANSETRON 4 MG/2 ML (SDV) Z0FRAN IVP PRN (20:30)
[2019-08-31] MEDS: OXYTOCIN PRE-MIX DRIP 500 ML IV SCH (20:41)
[2019-08-31] MEDS: oxyCODONE/APAP 10/325MG (PERCOCET 10) TABLET PO PRN ×2 (20:44→23:06)
[2019-08-31] MEDS ORDERED: DOCUSATE SODIUM 100 MG (COLACE) CAP PO SCH (21:00)
[2019-08-31] MEDS: DOCUSATE SODIUM 100 MG (COLACE) CAP PO SCH (23:05)
[2019-09-01] VITALS (7 sets, daily range): BP systolic 114–126; BP diastolic 62–76
[2019-09-01] MEDS: OXYTOCIN PRE-MIX DRIP 500 ML IV SCH (00:34)
[2019-09-01] MEDS: KETOROLAC 30 MG/ML VIAL IVP SCH ×2 (00:34→06:07)
--- NOTE | 2019-09-01 01:02 | OPERATIVE REPORT ---
DATE OF SERVICE: 08/31/2019 PREOPERATIVE DIAGNOSES: A 37 and 3/7 weeks' gestation with two previous sections and severe preeclampsia. POSTOPERATIVE DIAGNOSIS: A 37 and 3/7 weeks' gestation with two previous sections and severe preeclampsia. OPERATIVE PROCEDURE: Repeat low transverse delivery of a viable female with Apgars of 9 and 9 at 1 and 5 minutes respectively, weight of 8 pounds 14 ounces. time of 1834 and a cord blood pH of 7.29. OPERATIVE DESCRIPTION: With the patient in the supine position under satisfactory spinal analgesia, she was prepped and draped in the usual fashion for abdominal surgery. Padilla catheter was placed in the urinary bladder. A repeat Pfannenstiel incision was made through the skin with scalpel, the patient's abdomen entered in the usual manner. Bladder retractor placed in position, clean scalpel used to make a 4 cm hysterotomy incision transversely across the lower uterine segment that was extended by blunt dissection as well. Copious clear fluid was released on hysterotomy. Orr forceps were applied to facilitate the delivery of a vigorous viable female infant. Infant had Apgars and stats as noted above. The infant was bulb suctioned on delivery of the head and again on completion of delivery. Umbilical cord was doubly clamped and cut and the passed to the pediatric nurse in attendance for the delivery. Cord bloods were obtained. Placenta delivered manually. It did not want to release spontaneously, so it was extracted manually. The uterus was then exteriorized and interior wiped clean with a wet laparotomy sponge. Uterine incision closed with a running locked suture of 2-0 Vicryl. Hemostasis was complete. The uterus was returned to the abdominal cavity. All blood clot and debris removed from the abdominal cavity. With sponge, needle counts correct, hemostasis assured. The anterior parietal peritoneum was closed with running suture of 2-0 Vicryl. The rectus fascia was closed with 2-0 Vicryl, subcutaneous tissue with 2-0 Vicryl and the skin was stapled. Sponge and needle counts were correct on completion of the procedure. Estimated blood loss was around 300 mL. The patient tolerated the procedure well and was transferred to recovery room in stable condition. The had remained with the mom in the operating room. Job ID: [id number] DocumentID: [id number] Dictated Date: 08/31/2019 19:00:48 Sensitized Paper Tester Date: 09/01/2019 01:01:49 Dictated By: MERCEDES HITCHCOCK MD
[2019-09-01] MEDS: oxyCODONE/APAP 10/325MG (PERCOCET 10) TABLET PO PRN ×2 (04:32→20:33)
--- NOTE | 2019-09-01 08:00 | NUR ---
A.M. ASSESSMENT COMPLETED. VSS. PLEASANT AFFECT. CARING FOR IN ROOM. GOOD INTERACTION.
--- NOTE | 2019-09-01 08:03 | Progress Note ---
Standard Progress Note Progress Notes/Assess & Plan Date Seen by a Provider: Sep 01, 2019 Time Seen by a Provider: 08:01 Progress/Assessment & Plan This patient is without complaint. She is ambulating, voiding, tolerating oral intake well has good pain control. Patient denies chest pain, denies shortness of breath, denies nausea vomiting, and denies headache. Vital Signs 09/01/19 04:32 Temp 36.4 Pulse 64 Resp 18 B/P (MAP) 119/76 (90) Pulse Ox 98 O2 Delivery Room Air Vital signs are stable. Patient is afebrile. Abdomen is benign. Extremities show no clubbing or cyanosis. There is no Homans sign. Assessment and plan postoperative day number 1 doing well. Plan is for routine convalescence care MERCEDES HITCHCOCK MD Sep 01, 2019 08:03
[2019-09-01] MEDS: DOCUSATE SODIUM 100 MG (COLACE) CAP PO SCH ×2 (08:15→20:33)
--- NOTE | 2019-09-01 10:06 | NUR ---
TDAP GIVEN IM IN THE LEFT DELTOID. SITE CLEAR.
--- NOTE | 2019-09-01 10:54 | Anesthesia-Regional Post-Op ---
Regional Patient Condition Mental Status: Alert, Oriented x3 Circulation: Same as Pre-Op Headache: Absent Sensation: Full Recovery Motor Block: Absent Post Op Complications Complications None Follow Up Care/Instructions Patient Instructions None needed. Anesthesia/Patient Condition Patient is doing well, no complaints, stable vital signs, no apparent adverse anesthesia problems. No complications reported per nursing. DANIEL BAHENA CRNA Sep 01, 2019 10:54
--- NOTE | 2019-09-01 12:00 | NUR ---
visited w/ pt and family. Doing well.
[2019-09-01] MEDS ORDERED: IBUPROFEN 800 MG (MOTRIN) TAB PO ONE (12:13)
[2019-09-01] MEDS: IBUPROFEN 800 MG (MOTRIN) TAB PO SCH ×3 (12:25→23:37)
--- NOTE | 2019-09-01 12:30 | NUR ---
VSS. CONTINUES TO CARE FOR INFANT IN ROOM. WELL.
--- NOTE | 2019-09-01 17:15 | NUR ---
INFANT. OFFERS NO COMPLAINTS.
--- NOTE | 2019-09-01 18:45 | NUR ---
FAMILY BROUGHT FOOD FOR PATIENT. OFFERS NO COMPLAINTS.
--- NOTE | 2019-09-01 19:50 | NUR ---
PT SITTING UP IN BED. BABY TO RIGHT BREAST AT THIS TIME. TOLERATING WELL. FOB AT BEDSIDE. NO S/S OF DISTRESS NOTED. PT HAS NO REQUESTS AT THIS TIME . WILL CONTINUE TO MONITOR.
--- NOTE | 2019-09-01 20:30 | NUR ---
PT SITTING UP IN BED AT THIS TIME. BABY AT LEFT BREAST. TOLERATING WELL. PT HAS C/O CRAMPING IN THE LOWER ABD. PRN PERCOCET GIVEN FOR PAIN. NO OTHER PT REQUESTS AT THIS TIME. WILL CONTINUE TO MONITOR.
--- NOTE | 2019-09-01 23:50 | NUR ---
PT REQUESTS THAT STAFF DOES NOT WAKE HER FOR 0400 VITALS. SHE WOULD LIKE TO REST.
[2019-09-02] MEDS: IBUPROFEN 800 MG (MOTRIN) TAB PO SCH ×2 (06:15→11:45)
--- NOTE | 2019-09-02 07:49 | Progress Note ---
Standard Progress Note Progress Notes/Assess & Plan Date Seen by a Provider: Sep 02, 2019 Time Seen by a Provider: 07:48 Progress/Assessment & Plan This patient is without complaint. She is ambulating, voiding, tolerating oral intake well has good pain control. Patient denies chest pain, denies shortness of breath, denies nausea vomiting, and denies headache. Vital Signs 09/01/19 04:32 Temp 36.4 Pulse 64 Resp 18 B/P (MAP) 119/76 (90) Pulse Ox 98 O2 Delivery Room Air Vital signs are stable. Patient is afebrile. Abdomen is benign. Extremities show no clubbing or cyanosis. There is no Homans sign. Assessment and plan postoperative day number 1 doing well. Plan is for routine convalescence care September 02, 2019 Patient is without complaint. She is ambulating, voiding, tolerating oral intake well has good pain control. Patient is requesting discharge home. Vital Signs Date Time Temp Pulse Resp B/P (MAP) Pulse Ox O2 Delivery O2 Flow Rate FiO2 09/01/19 23:37 36.5 87 18 126/73 (90) 98 Room Air 09/01/19 20:04 Room Air 09/01/19 19:49 36.6 80 18 125/71 (89) 98 Room Air 09/01/19 16:40 36.5 79 18 114/62 (79) 96 Room Air 09/01/19 12:30 36.6 84 18 117/67 (84) 97 Room Air 09/01/19 08:00 36.6 83 18 121/69 (86) 97 Room Air I & O 09/02/19 07:00 Intake Total 3000 ml Output Total 2825 ml Balance 175 ml Vital signs are stable. Patient is afebrile. The abdomen is benign. Fundus is firm below the umbilicus and nontender. The surgical incision is clean dry and intact. Extreme show clubbing or cyanosis. There is no Homans sign. Assessment and plan postoperative day number 2 status post repeat at 37+ weeks gestation. Patient is doing well. Her blood pressures have normaliz ed. Plan is for discharge home with follow-up in clinic Final Diagnosis 37+ week repeat delivery MERCEDES HITCHCOCK MD Sep 02, 2019 07:49
[2019-09-02 08:30] VITALS: BP 121/75
--- NOTE | 2019-09-02 09:00 | NUR ---
A.M. ASSESSMENT COMPLETED. VSS. PLANNING TO GO HOME TODAY. CARING FOR IN ROOM.
[2019-09-02] MEDS: DOCUSATE SODIUM 100 MG (COLACE) CAP PO SCH (10:01)
--- NOTE | 2019-09-02 10:30 | NUR ---
JENNA D/C'ED AND STERI STRIPS APPLIED. TINCTURE OF BENZOIN APPLIED PRIOR TO PLACING STERI-STRIPS. EDGES WELL-APPROXIMATED. NO S/SX OF REDNESS OR DRAINAGE. TOLERATED WELL.
--- NOTE | 2019-09-02 11:25 | NUR ---
DISCHARGE INSTRUCTIONS REVIEWED WITH COPY TO PT. RX GIVEN. STATES UNDERSTANDING OF ALL INSTRUCTIONS AND NEED TO F/U SCHEDULED AND NEEDED.
[2019-09-02 12:15] VITALS: BP 121/75
--- NOTE | 2019-09-02 12:15 | NUR ---
DISMISSED AMB FROM [facility] WITH INFANT IN STABLE CONDITION TO FAMILY CAR ACC BY SPOUSE, PARENTS, AND MARIANO GALDAMEZ RN.
== END 2019-09-02 12:15 | disposition home or self-care (01) | DRG 788 ==
LOC: LDRP 14:19
PROVIDERS: ADMIT Obstetrics & Gynecology; ATTEND Obstetrics & Gynecology
PROC: 10D00Z1 Extraction of Products of Conception, Low, Open Approach (ICD-10-PCS; principal; 2019-08-31 18:02)
DX: O14.14 Severe pre-eclampsia complicating childbirth (principal); O34.211 Maternal care for low transverse scar from previous cesarean delivery; Z37.0 Single live birth; Z3A.37 37 weeks gestation of pregnancy; Z23 Encounter for immunization
CPT/HCPCS: 36415; 80053; 82570; 83615; 84156; 84550; 85025; 86850; 86900; 86901; 90715